=== PATIENT | female | born 1975 | race African-American/Black ===

== ENCOUNTER 2020-08-09 06:06 | Day surgery (SDC) | payer OTHER, SELFPAY ==
--- NOTE | 2020-08-07 12:13 | HO.ANESPROP2 ---
Documented by User: Ivon Conradney 08/07/20 12:17 HPI - Anesthesia Eval Consult details Narrative: 44yo F for Right ORIF 5th Metatarsal Fx PCP cleared Neuro cleared (benign intercranial htn on acetazolamide) [facility] Past Medical History Medical History Arthritis Benign intracranial hypertension Depression Diabetes GERD (gastroesophageal reflux disease) HTN (hypertension) Sleep apnea Surgical History Surgical History History of esophagogastroduodenoscopy (EGD) Hx of bilateral breast reduction surgery Hx of foot surgery Hx of hysterectomy Social History Social History Smoking Status: Never smoker Use of substances other than those prescribed or required for medical reasons: No Advance Directives Information Provided: No Meds Allergies Allergy/AdvReac Type Severity Reaction Status Date / Time Penicillins Allergy Intermediate itching/fco Verified 08/09/20 06:11 sea/rash sulfamethoxazole Allergy Intermediate itching/fco Verified 08/09/20 06:11 [From Bactrim] sea/rash trimethoprim [From Bactrim] Allergy Intermediate itching/fco Verified 08/09/20 06:11 sea/rash Home Medications Medication Instructions Recorded Confirmed Last Taken Type acetazolamide 500 mg PO BID 08/06/20 08/06/20 Unknown History albuterol sulfate [ProAir HFA] 2 puff INHALATION Q4-6H PRN 08/06/20 08/06/20 Unknown History amitriptyline 25 mg PO BEDTIME 08/06/20 08/06/20 Unknown History cholecalciferol (vitamin D3) 25 mcg PO DAILY 08/06/20 08/06/20 Unknown History [Vitamin D3] clonidine HCl 0.1 mg PO BID 08/06/20 08/06/20 Unknown History dulaglutide [Trulicity] 0.5 ml SUBCUT QWEEK 08/06/20 08/06/20 Unknown History hydrochlorothiazide 25 mg PO DAILY 08/06/20 08/06/20 Unknown History lorazepam 0.5 mg PO DAILY PRN 08/06/20 08/06/20 Unknown History losartan 50 mg PO DAILY 08/06/20 08/06/20 08/09/20 04:50 History meclizine 25 mg PO TID 08/06/20 08/06/20 Unknown History meloxicam 15 mg PO DAILY 08/06/20 08/06/20 Unknown History metformin 500 mg PO BID 08/06/20 08/06/20 Unknown History pantoprazole 40 mg PO BID 08/06/20 08/06/20 Unknown History sertraline 50 mg PO QAM 08/06/20 08/06/20 Unknown History sertraline 200 mg PO QAM 08/06/20 08/06/20 Unknown History Exam Exam Date and Time: August 07, 2020 1213 Height,Weight and Vital Signs: Weight 116.58 kg Narrative Narrative: EKG 07/2020 SR @ 80 QTc @ 448 Assessment and Plan Assessment Anesthesia Assessment: Chart Reviewed Documented by User: Aditya Wu MD 08/09/20 08:18 [facility] Past Medical History Medical History Arthritis Benign intracranial hypertension Depression Diabetes GERD (gastroesophageal reflux disease) HTN (hypertension) Sleep apnea Surgical History Surgical History History of esophagogastroduodenoscopy (EGD) Hx of bilateral breast reduction surgery Hx of foot surgery Hx of hysterectomy Social History Social History Smoking Status: Never smoker Use of substances other than those prescribed or required for medical reasons: No Advance Directives Information Provided: No Meds Allergies Allergy/AdvReac Type Severity Reaction Status Date / Time Penicillins Allergy Intermediate itching/fco Verified 08/09/20 06:11 sea/rash sulfamethoxazole Allergy Intermediate itching/fco Verified 08/09/20 06:11 [From Bactrim] sea/rash trimethoprim [From Bactrim] Allergy Intermediate itching/fco Verified 08/09/20 06:11 sea/rash Home Medications Medication Instructions Recorded Confirmed Last Taken Type acetazolamide 500 mg PO BID 08/06/20 08/06/20 Unknown History albuterol sulfate [ProAir HFA] 2 puff INHALATION Q4-6H PRN 08/06/20 08/06/20 Unknown History amitriptyline 25 mg PO BEDTIME 08/06/20 08/06/20 Unknown History cholecalciferol (vitamin D3) 25 mcg PO DAILY 08/06/20 08/06/20 Unknown History [Vitamin D3] clonidine HCl 0.1 mg PO BID 08/06/20 08/06/20 Unknown History dulaglutide [Trulicity] 0.5 ml SUBCUT QWEEK 08/06/20 08/06/20 Unknown History hydrochlorothiazide 25 mg PO DAILY 08/06/20 08/06/20 Unknown History lorazepam 0.5 mg PO DAILY PRN 08/06/20 08/06/20 Unknown History losartan 50 mg PO DAILY 08/06/20 08/06/20 08/09/20 04:50 History meclizine 25 mg PO TID 08/06/20 08/06/20 Unknown History meloxicam 15 mg PO DAILY 08/06/20 08/06/20 Unknown History metformin 500 mg PO BID 08/06/20 08/06/20 Unknown History pantoprazole 40 mg PO BID 08/06/20 08/06/20 Unknown History sertraline 50 mg PO QAM 08/06/20 08/06/20 Unknown History sertraline 200 mg PO QAM 08/06/20 08/06/20 Unknown History Exam Airway Mallampati Class: I TM Dist: >3cm Neck ROM: Full Loose/Missing/Broken Teeth: No Assessment and Plan Assessment Anesthesia Assessment: Anesthesia Plan Discussed and Chart Reviewed Final Anesthetic Review NPO: Yes ASA Class: III Final Preanesthetic Review: No Changes in Pt Med Stat, Meds/Allgs Chart Reviewed, Consent Obtained/Reviewed and Anes Risks/Benef Reviewed Patient Risk: Intermediate Procedure Risk: Low Anesthetic Plan Anesthetic Plan: GA and MAC: Disposition: Standard PACU
--- NOTE | 2020-08-08 10:28 | HP_ITS ---
DATE OF SERVICE: 08/09/2020 PREOPERATIVE DIAGNOSIS: Nonhealing 5th metatarsal fracture, right foot. PLANNED PROCEDURE: Open reduction internal fixation of nonhealing 5th metatarsal fracture, right foot; and harvesting of bone graft, right calcaneus. PAST MEDICAL HISTORY: Hypertension; hip, back, knee pain; reflux; recently diagnosed with diabetes. CURRENT MEDICATIONS: Trulicity, clonidine, amitriptyline, lorazepam, hydrochlorothiazide, pantoprazole, sertraline, vitamin D3, metformin, acetazolamide losartan. SURGICAL HISTORY: Breast augmentation, partial hysterectomy. FAMILY HISTORY: Significant for diabetes, hypertension, and cancer. SOCIAL HISTORY: Patient is a nonsmoker. Denies any illicit drug use or alcohol use. 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 ALLERGIES: PENICILLIN AND BACTRIM. HOSPITALIZATIONS: Hysterectomy, lumbar puncture. REVIEW OF SYSTEMS: Within normal limits. HISTORY OF PRESENT ILLNESS: This is a 44-year-old female who presented to my office in December of 2019 with pain, swelling, and tenderness to the outside aspect of the right mid foot that had been present for some time. She relates sudden onset, however, denies any significant trauma. The patient has been diagnosed with a 5th metatarsal fracture. She wanted to first try conservative therapies. 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 PHYSICAL EXAMINATION: GENERAL: Reveals a pleasant, alert, well-nourished, well-developed, well-hydrated individual, who demonstrates proper attention to hygiene and body habitus, in no acute distress. She is oriented to person, place, and time. NEUROLOGICAL: Reveals intact sensorium. Pain sensation is normal. Vibratory sensation is intact. Pinprick sensation is normal. She denies any anesthesias, burning, paresthesias, or tingling bilaterally. Deep tendon reflexes of the Achilles are 2/4 bilaterally. Neuroma pain. The patient has no noted interspace pain on palpation to the right foot. VASCULAR: DP and PT pulses are 3/4 bilaterally. Capillary refill time is immediate to all digits. Skin temperature, elasticity, and turgor are normal. Pigmentation is normal. There is no edema bilaterally. DERMATOLOGICAL: Reveals normal texture, elasticity, and turgor. There are no masses. ORTHOPEDIC: Muscle strength is 5/5 in all muscle groups in a symmetrical fashion. MPJ pathology reveals continued pain on metatarsal palpation of the proximal one-third shaft of the 5th metatarsal of the right foot with swelling present. There is little to no pain on palpation, inflammation, or swelling to the peroneal complex in the right foot. IMAGING: X-rays are reviewed, which show 3 views of the right foot, AP, lateral, and LO, shows signs of fracture identified of the 5th metatarsal, transverse fracture, incomplete, nondisplaced with good end-to-end bone approximation, relatively unchanged from previous x-rays. PLAN: Patient is scheduled for surgery for open reduction and internal fixation of right 5th metatarsal with harvesting of bone graft from right calcaneus. Surgical procedure to treat the patient's foot problem was discussed. We reviewed the risks of the procedure as well as not having the procedure. We discussed the potential procedure complications including, but not limited to, pain, swelling, bleeding, scarring, numbness, infection, delayed or nonhealing, instability, reoccurrence, failure of the procedure, over-correction, need for further surgery, as well as the possibility of loss of toe, foot, life, or limb. We discussed the use of anesthesia as well as the postoperative course of healing. No guarantees were given. The patient verbally indicated a full understanding of the above conversation and is answered all questions to their satisfaction. We decided on performing the ORIF of the right 5th metatarsal and harvesting of bone graft from the right calcaneus based on the patient's complaints, medical history, social history, physical exam, ability to ambulate with a cast boot to be nonweightbearing in the usual postoperative period. The patient would like to proceed with surgical treatment. Discussed surgery as well as recovery in detail with the patient including the patient will be nonweightbearing after surgery with crutches, walker, or knee scooter. Knee scooter prescription was given at that time. The patient will continue with bone stimulator after surgery. Instructed that she cannot drive for a portion of the postoperative period. MassPAT was checked prior to prescription of narcotic pain medications. She can take half the prescription and discussed that she should use the lowest dosage of narcotics for the shortest duration of time. When not using Percocet, alternate staggering extra-strength Tylenol and Motrin 800 mg as needed for any discomfort. The patient was recently diagnosed with diabetes. Her A1c is within a normal range and the patient is managed medically. The patient is to be cleared by her primary care physician as well as neurologist for recent headaches. Radha Garcia DPM LP/NEAL / [id number] MTDD
[2020-08-09] VITALS (11 sets, daily range): BP systolic 105–123; BP diastolic 56–70; PULSE 74–93; RESP 16; TEMP 36–36.8; O2SAT 95–100; BMI 37.4
--- NOTE | ~2020-08-09 | FL_ITS ---
EXAMINATION: XR FLUOROSCOPY WITH IMAGES CLINICAL INFORMATION: ORIF COMPARISON: Right foot CT dated 11/09/2019. Right foot MRI dated 02/22/2020. TECHNIQUE: Fluoroscopy performed by Radha Garcia. Fluoroscopy time: 0.2 minutes DAP: 0.40052 mGycm2 Images: 3 FINDINGS: Lateral stabilization plate and fixation screws at the proximal 5th metatarsal. No radiopaque foreign body. FL/FL guidance in OR IMPRESSION: Proximal 5th metatarsal ORIF.
[2020-08-09 06:40] LABS: Glucose, Whole Blood 97 mg/dL (60-115)
[2020-08-09] MEDS: Lactated Ringers 1,000 ML 50 ML IV (06:42)
[2020-08-09] MEDS: vancomycin HCL 1,500 MG in 0.9 % Sodium Chloride 500 ML 333.33 MG IV (07:00)
--- NOTE | 2020-08-09 07:29 | MHC.SHP ---
Pre-Procedural Eval Section A The patient is an INPATIENT: No Changes since office visit: No Cold of Flu in the past 2 weeks, No New Medical Problems, No Changes in Medication and No Patient answered all questions The History & Physical has been completed within 30 days and I have reviewed it.: Yes Section B Chief Complaint: nondisplace fx metataesal Allergies: Allergies Allergy/AdvReac Type Severity Reaction Status Date / Time Penicillins Allergy Intermediate itching/fco Verified 08/09/20 06:11 sea/rash sulfamethoxazole Allergy Intermediate itching/fco Verified 08/09/20 06:11 [From Bactrim] sea/rash trimethoprim [From Bactrim] Allergy Intermediate itching/fco Verified 08/09/20 06:11 sea/rash Plan I have reviewed the history and physical and performed a pertinent physical examination on my patient. No changes have occurred unless specified.
--- NOTE | 2020-08-09 09:13 | PM.OP ---
Brief Operative Note Date of Service: 08/09/20 Pre-op diagnosis: Non union right 5the metatarsal fracture Post-op diagnosis: same Procedure: Right ORIF 5th metatarsal fracture right foot with harvesting bone graft right calcanues Implants: [id number] 4 hole 5th metatarsal plate Surgeon: Radha Garcia Anesthesia: GLMA Was an Infrastructure Design Engineer used for this Procedure?: Yes Infrastructure Design Engineer: Rory Garay Estimated blood loss (mL): 5 Tourniquet time (min): 65 Pathology: none sent Condition: stable Disposition: PACU
[2020-08-09] MEDS: Acetaminophen 325 MG TABLET 975 MG PO (09:57)
[2020-08-09] MEDS: oxyCODONE HCl Immed Release 5 MG TABLET PO (09:57)
[2020-08-09] MEDS: HYDROmorphone HCl 0.5 MG/0.5 ML SYRINGE 0.25 MG IVPUSH ×2 (10:05→10:13)
--- NOTE | 2020-08-09 14:41 | OP_ITS ---
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 PROCEDURES PERFORMED: 1. ORIF, right 5th metatarsal nonhealing fracture. 2. Harvesting of bone graft, right calcaneus. ESTIMATED BLOOD LOSS: Less than 5 mL. COMPLICATIONS: None. ANESTHESIA: LMA with local consisting preoperatively of 18 mL of 0.5% Marcaine plain and 2% lidocaine plain and postoperatively 10 mL of 0.5% Marcaine plain. ASSISTANTS: Rory Garay DPM. SPECIMENS: None HEMOSTASIS: A pneumatic ankle tourniquet set at 215 mmHg for 65 minutes. INDICATIONS FOR SURGERY: The patient had a painful nonunion noted to the right foot at the level of the 5th metatarsal base. Her fracture was sustained back in December of 2019. The patient has failed multiple conservative therapies for the right foot fracture. CT confirmed nonunion of the fracture site and therefore, surgery was discussed in detail with the patient. The above-mentioned surgery was discussed in detail including risks, benefits, possible complications, and no guarantees were given. A written and oral informed consent were obtained. DESCRIPTION OF PROCEDURE: The patient was brought to the operating room, placed on the operating table in the supine position. Following IV sedation, 1 g of vancomycin was administered preoperatively. The preoperative regional field block was administered with 18 mL of 0.5% Marcaine plain and 2% lidocaine plain and the right foot was scrubbed, prepped, and draped in a sterile manner. Attention was directed to the right foot at the level of the 5th metatarsal. An incision was made overlying the lateral aspect of the 5th metatarsal base extending to the shaft. The incision was deepened down through subcutaneous tissue. Great care was taken to retract vital and neurovascular structures. The soft tissues were freed from their osseous attachments to the level of the lateral 5th metatarsal base and shaft. Using C-arm fluoroscopy, the 5th metatarsal fracture site was identified. The fracture site had some fibrous and osseous attachments. The fracture site was then scraped using curette to freshen the fracture site as well as power saw to stimulate healing at the fracture site laterally. The wound was irrigated with normal sterile saline. Attention was then directed to the heel, where a new incision was made, guided by C-arm fluoroscopy into the lateral aspect of the calcaneal body. The incision was deepened down with great care being taken to retract any vital, neuro, and vascular structures and then any bleeders were cauterized as necessary. The soft tissues were freed from their osseous attachments with an elevator at the lateral calcaneal body and utilizing the [employer] bone graft harvester from [employer]. The 8 mm bone graft harvester was powered into the lateral calcaneus. The calcaneus was reamed and about 1 cm was removed and bone graft was harvested then from the calcaneus and placed in a specimen cup. The area that was reamed was then backfilled with a Tribio backfill plug, which was cut to size and placed within the hole left by the reamer. The wound was then irrigated with copious amounts of normal sterile saline. A piece of AmnioFix was placed. The deep structures were reapproximated with 3-0 Vicryl in an interrupted suture technique and the skin was reapproximated with 4-0 nylon in a continuous running fashion. Attention was directed back to the original incision over the 5th metatarsal. The bone graft from the calcaneus was then passed into the freshened fracture site at the lateral aspect of the 5th metatarsal. Next, the plantar plate 4-hole from [id number] was then placed overlying the plantar lateral aspect of the 5th metatarsal. Two olive wires were placed, one proximal and one distal to the fracture site. A nonlocking screw was placed in the most proximal screw hole first, 14 mm. Next, a screw was placed into the compression screw hole. All wires were removed and the screw was advanced in a locking fashion 12 mm into the compression screw hole creating compression of the osteotomy site. Then, proximal and distal screw holes that were left, were then drilled, measured, and screw placed with a 12 mm and 11 mm screw respectively. The plate and screws were then checked under C-arm fluoroscopy, noted to be in excellent position over the fracture site, applying compression as well as stabilization of the 5th metatarsal. A piece of AmnioFix was placed in the 5th metatarsal and the capsular structures were reapproximated with 3-0 Vicryl. The skin was reapproximated with 4-0 Monocryl and 4-0 nylon in an interrupted suture technique and a ZipLine was placed over the incision. A postoperative injection of 10 mL of 0.5% Marcaine plain was administered to the right foot. The foot was then dressed with Xeroform, Betadine-soaked gauze, 4x4s, fluffs, Annita, cast padding, and an Augusto bandage. The pneumatic ankle tourniquet was deflated and prompt capillary refill was noted to all 5 digits. The patient tolerated procedure and anesthesia well. The patient was transferred to the recovery room with vital signs stable and vascular status at preoperative levels. The patient will be discharged home with written and oral postoperative instructions. The patient is to be strictly nonweightbearing to the right foot with crutches, walker, or a knee scooter and a surgical shoe. The patient will follow up in my office for all postoperative followup care. She will also take pain medication as needed, Percocet 5/325 mg as needed for pain as well as Tylenol when not taking the Percocet, 800 mg of ibuprofen as needed, and ice and elevate the right foot. Radha Garcia DPM LP/NEAL / [id number] MTDAntonio
== END 2020-08-09 12:12 | disposition home or self-care (01) ==
LOC: HO.SSS 06:06
PROVIDERS: PCP Pediatrics; Visit Provider Podiatrist
PROC: (CPT 28322; principal; 2020-08-09 07:30)
DX: S92.354A Nondisplaced fracture of fifth metatarsal bone, right foot, initial encounter for closed fracture (principal); G47.33 Obstructive sleep apnea (adult) (pediatric); G93.2 Benign intracranial hypertension; E11.65 Type 2 diabetes mellitus with hyperglycemia; Z79.84 Long term (current) use of oral hypoglycemic drugs; F32.9 Major depressive disorder, single episode, unspecified; I10 Essential (primary) hypertension; Z99.89 Dependence on other enabling machines and devices; Z79.899 Other long term (current) drug therapy; X58.XXXA Exposure to other specified factors, initial encounter; Y93.9 Activity, unspecified; Y92.9 Unspecified place or not applicable; Y99.8 Other external cause status
CPT/HCPCS: 28322; 82947; C1713; J1100; J1170; J2250; J3010; J3370; J3590